=== PATIENT | female | born 2000 | race Two or more races ===

== ENCOUNTER 2025-02-09 10:41 | Emergency (ER) | payer MEDICAID, SELFPAY ==
[2025-02-09 10:49] VITALS: BP 125/62; PULSE 102; RESP 16; TEMP 37; O2SAT 97; BMI 30.9
--- NOTE | 2025-02-09 10:54 | EDNOTE_ITS ---
<Statement entered by Sarahi Goncalves MD - 02/12/25 14:42> As co-signing physician, I was present and available for consult prn. I concur with the plan and care as documented by the midlevel provider. ED Allergic Reaction RME/HPI General Chief complaint: Allergic Reaction Stated complaint: BLISTERS ON LIPS & HIVES ; POSSIBLE ALLERGIC RXN Time Seen by Provider: 02/09/25 10:51 Arrival date/time: 02/09/25 10:41 25-year-old female presents to the emergency department day for concerns for allergic reaction patient reports blisters on lips and hives patient also states that she has got vaginal discharge requesting STD panel Limitations: no limitations Related Data Home Medications ?Medication ?Instructions ?Recorded ?Confirmed vits no.130-ferrous fum tab 10/09/23 27 mg iron-folic acid 800 mcg tablet ( Vitamin) Previous Rx's ?Medication ?Instructions ?Recorded diphenhydramine HCl 25 mg capsule 25 mg PO Q8H PRN all ergic symptoms 02/09/25 (Benadryl) #30 caps doxycycline hyclate 100 mg capsule 100 mg PO BID 7 day s #14 caps 02/09/25 Allergies Allergy/AdvReac Type Severity Reaction Status Date / Time No Known Allergies Allergy Verified 02/09/25 10:46 Review of Systems Review of Systems Systems Reviewed: All systems reviewed, normal except as documented Constitutional Constitutional: Reports system reviewed and no additional complaints, except as documented, Denies fever(s) and Denies headache(s) Eyes Eyes: Reports system reviewed and no additional complaints, except as documented and Denies blurry vision ENT Ears, Nose, Mouth, and Throat: Reports system reviewed and no additional complaints, except as documented, Denies headache(s), Denies nasal congestion and Denies nasal discharge Cardiovascular Cardiovascular: Reports system reviewed and no additional complaints, except as documented, Denies chest pain and Denies dyspnea Respiratory Respiratory: Reports system reviewed and no additional complaints, except as documented, Denies chest congestion, Denies cough and Denies dyspnea Gastrointestinal Gastrointestinal: Reports system reviewed and no additional complaints, except as documented and Denies abdominal pain Genitourinary Genitourinary: Reports system reviewed and no additional complaints, except as documented, Denies abnormal vaginal bleeding, Denies dysuria, Denies flank pain and Reports vaginal discharge Integumentary/Breasts Skin/Breast: Reports system reviewed and no additional complaints, except as documented, Reports lesions, Reports pruritus and Reports rash Neurologic Neurologic: Reports system reviewed and no additional complaints, except as documented, Reports as per HPI and Denies headache(s) Past Medical History Past Medical History NEUROLOGIC: Negative Neurological Disorders or Seizures CARDIAC: Negative Cardiac Disorders or Congestive Heart Failure RESPIRATORY: Negative Chronic Obstructive Pulmonary Disease (COPD) GENITOURINARY: Negative Renal Disease REPRODUCTIVE: Negative Pelvic Inflammatory Disease MUSCULOSKELETAL: Negative Musculoskeletal Disorders ENDOCRINE: Negative Diabetes Mellitus Type 1 or Diabetes Mellitus Type 2 OTHER HISTORY: Negative Autoimmune Disease, Blood Transfusions, Blood Transfusion Reaction or Anesthesia Reactions Family History FAMILY HISTORY: Positive Family Cancer Surgical History SURGICAL: Negative Cardiac Surgery, Endocrine Surgery, Thyroidectomy or Ear Surgery Social History SMOKING STATUS: Current every day smoker ED Exam General Limitations: Present no limitations General appearance: Present alert and in no apparent distress Head Head exam: Present atraumatic Eye Eye exam: Present normal appearance, PERRL and EOMI ENT ENT exam: Present normal exam, normal oropharynx and mucous membranes moist Neck Neck exam: Present normal inspection, full ROM and trachea midline Chest Chest inspection: Present normal inspection and symmetric chest wall rise Respiratory Respiratory exam: Present normal lung sounds bilaterally Cardiovascular Cardiovascular exam: Present regular rate, normal rhythm and normal heart sounds Abdominal Exam Abdominal exam: Present soft and normal bowel sounds; Absent distention, tenderness, guarding, rebound or rigidity Extremities Exam Extremities exam: Present normal inspection and full ROM Back Exam Back exam: Present normal inspection and full ROM Neurological Exam Neurological exam: Present alert, oriented X3, CN II-XII intact, normal gait and reflexes normal; Absent motor sensory deficit Psychiatric Psychiatric exam: Present normal affect and normal mood Skin Skin exam: Present warm, dry and rash Course Quality Measures none Orders Category Date Time Status Chlamydia/GC/TV - PCR Stat Lab 02/09/25 11:56 Completed HCG Qualitative,Urine Stat Lab 02/09/25 11:56 Completed UA, C/S IF [Urinalysis, C/S if Indicated] Stat Lab 02/09/25 11:56 Completed Dexamethasone Inj [Decadron Inj] Med 02/09/25 10:53 Discontinued 10 mg PO X1 ONE DiphenhydrAMINE [Benadryl] Med 02/09/25 10:53 Discontinued 25 mg PO X1 ONE Lidocaine 1% 20 ml [Xylocaine 1% 20 ML] Med 02/09/25 12:31 Discontinued 2.1 ml INFL X1 ONE cefTRIAXone [Rocephin] Med 02/09/25 12:31 Discontinued 1,000 mg IM X1 ONE Vital Signs Vital signs: Vital Signs Temperature 98.6 F 02/09/25 10:49 Pulse Rate 102 H 02/09/25 10:49 Respiratory Rate 16 02/09/25 10:49 Blood Pressure 125/62 02/09/25 10:49 Pulse Oximetry (%) 97 02/09/25 10:49 Oxygen Delivery Method Room Air 02/09/25 10:49 O2 saturation 97% room air within normal limits Allergic Reaction MDM Narrative MDM Narrative:: 25-year-old female presents to the emergency department day for concerns for allergic reaction patient reports blisters on lips and hives patient also states that she has got vaginal discharge requesting STD panel On exam patient is multiple skin sores I suspect this is secondary to methamphetamine abuse Patient has no evidence of anaphylaxis patient does have some scattered hives Urinalysis GC and chlamydia obtained GC and chlamydia pending patient be treated prophylactically Patient was treated for the rash Patient discharged home in no distress to follow-up with primary care doctor in the next 24 to 48 hours and for any worsening symptoms to return to the ER immediately Patient data External records reviewed:: [facility] previous records Clinical information provided by:: patient Social determinants that could affect healthcare access:: none Patient has the following chronic illnesses:: None How is presenting disease/condition affected by chronic disease/condition?: no chronic disease Evaluation data The following diagnostics were reviewed and interpreted by me:: other (specify) (N/A) Lab and/or radiology exams considered but not ordered:: Consider not ordered Interpretation Summary: N/A Medications / Prescriptions Medications or Prescriptions considered but not ordered:: Given Medication administrations:: Medication Administration History Discontinued Medications Ceftriaxone Sodium (Ceftriaxone Sod Inj 1,000 Mg Vial) 1,000 mg IM X1 ONE Stop: 02/09/25 12:32 Last Admin: 02/09/25 12:44 Dose: 1,000 mg Documented By: DB Dexamethasone Sodium Phosphate (Dexamethasone Sod Phos Inj 10 Mg/Ml Vial) 10 mg PO X1 ONE Stop: 02/09/25 10:54 Last Admin: 02/09/25 11:05 Dose: 10 mg Documented By: DB Comments: med given IM right deltoid, per [facility] Diphenhydramine HCl (Diphenhydramine 25 Mg Capsule) 25 mg PO X1 ONE Stop: 02/09/25 10:54 Last Admin: 02/09/25 11:03 Dose: 25 mg Documented By: DB Lidocaine HCl (Lidocaine Hcl 1% 20 Ml Vial) 2.1 ml INFL X1 ONE Stop: 02/09/25 12:32 Last Admin: 02/09/25 12:45 Dose: 2.1 ml Documented By: DB Given Consultations Consultation(s) initiated? (list below): No Diagnosis Differential Diagnosis allergic reaction: anaphylaxis, allergic reaction and angioedema Most likely diagnosis given after review of the tests above:: Allergic reaction, vaginal discharge Admission Indicated Admission indicated?: not indicated Admission Request Was there a request for admission?: No Disposition Plan Disposition Plan: Discharge Discharge Attestation Discharge Attestation: The patient and all family members were given an opportunity to ask questions and understood the discharge instructions. Discharge instructions specifically effects, indications for sooner follow up or return to the emergency department, and the expected course of current diagnosis. Patient condition: Stable Discharge Plan Plan Patient Disposition: HOME (Self Care) Disposition Comment: Stable Prescriptions/Referrals Prescriptions/Med Rec: New doxycycline hyclate 100 mg capsule 100 mg PO BID 7 Days Qty: 14 0RF diphenhydramine HCl [Benadryl] 25 mg capsule 25 mg PO Q8H PRN (Reason: allergic symptoms) Qty: 30 0RF No Action Vitamin 27 mg iron- 800 mcg tablet Referrals: Waylon Macias MD [Primary Care Provider] - 02/12/25 Problem List Clinical Impression: Allergic reaction, Vaginal discharge Patient/Caregiver Discharge Instructions Education Materials: Vaginal Infection Additional Instructions: Please follow with your PCP in order to get full STD panel Your GC and chlamydia is pending will be treated prophylactically Patient discharged home in no distress to follow-up with primary care doctor in the next 24 to 48 hours and for any worsening symptoms to return to the ER immediately Print Language: Luxembourgish Stand Alone Forms: Mary Award Info., Patient Portal Info Letter PA/AIRCRAFT DESIGN ENGINEER Supervising Physician PA/AIRCRAFT DESIGN ENGINEER Supervising Physician: Dr. GONCALVES
[2025-02-09] MEDS: DiphenhydrAMINE 25 MG CAPSULE PO (11:03)
[2025-02-09] MEDS: DEXAMETHASONE SOD PHOS INJ 10 MG/ML VIAL PO (11:05)
[2025-02-09 12:15] LABS: Collection Type, Urine Clean Catch
[2025-02-09 12:26] LABS: Bilirubin,Urine Negative (Negative); Blood,Urine 3+ (Negative); Color,Urine Yellow (Lt Yel-Yel); Culture Indicated,Urine Not Indicated; Glucose, Urine Negative (Negative); Hyaline Casts,Urine 4 /hpf (0-1); Ketones,Urine Trace (Negative); Leukocyte Esterase,Urine Negative (Negative); Nitrite,Urine Negative (Negative); PH,Urine 5.5 (5.0-7.0); Protein,Urine 1+ (Neg - Trace); RBC,Urine 280 /hpf (0-3); Specific Gravity,Urine 1.035 (1.001-1.035); Squamous Epithelial Cell,Urine 2 /hpf (0-5); WBC,Urine 1 /hpf (0-5)
[2025-02-09 12:27] LABS: Clarity,Urine Hazy (Clear/Hazy)
[2025-02-09 12:28] LABS: HCG Qualitative,Urine Negative
[2025-02-09] MEDS: cefTRIAXone SOD INJ 1,000 MG VIAL 1000 MG IM (12:44)
[2025-02-09] MEDS: LIDOCAINE HCL 1% 20 ML VIAL 2.1 ML INFL (12:45)
[2025-02-09 16:30] LABS: Chlamydia trachomatis PCR Negative (Not Detect); Neisseria Gonorrhoeae DNA PCR Negative (Not Detect); Trichomonas Negative (Negative)
== END 2025-02-09 12:49 | disposition home or self-care (01) ==
PROVIDERS: Nurse Practitioner Primary Care; Emergency Provider Emergency Medicine; PCP Family Medicine
DX: L50.0 Allergic urticaria (principal); N89.8 Other specified noninflammatory disorders of vagina
CPT/HCPCS: 81001; 81025; 87491; 87591; 87661; 96372; 99283; J0696; J1100; J3490; A9270

== ENCOUNTER 2025-04-10 00:08 | Emergency (ER) | payer MEDICAID, SELFPAY ==
--- NOTE | 2025-04-10 00:18 | PD.EDHA ---
ED Headache RME/HPI General Chief Complaint: Headache Stated Complaint: MIGRAINE Time Seen by Provider: 04/10/25 00:28 Arrival date/time: 04/10/25 00:08 RME / HPI RME / HPI Narrative: This section includes all my notes and documentations, including HPI, PE, and ED course. Wayne Gonzalez MD HPI: 25yo female with history of methamphetamine abuse here with headache and other symptoms. She reports worst headache of her life. Physical Exam: General: Alert. Eyes: Conjunctivae and lids clear. ENT: No nasal congestion. Neck: Supple. Lungs: No respiratory distress. Told the patient that I would return once she is settled into bed. So I can obtain more detailed history and perform thorough physical exam. I was told the patient eloped. Wayne Gonzalez MD Related Data Home Medications ?Medication ?Instructions ?Recorded ?Confirmed vits no.130-ferrous fum tab 10/09/23 27 mg iron-folic acid 800 mcg tablet ( Vitamin) Previous Rx's ?Medication ?Instructions ?Recorded diphenhydramine HCl 25 mg capsule 25 mg PO Q8H PRN allergic symptoms 02/09/25 (Benadryl) #30 caps Allergies Allergy/AdvReac Type Severity Reaction Status Date / Time No Known Allergies Allergy Verified 04/10/25 00:10 Review of Systems Review of Systems Systems Reviewed: All systems reviewed, normal except as documented Past Medical History Past Medical History NEUROLOGIC: Negative Neurological Disorders or Seizures CARDIAC: Negative Cardiac Disorders or Congestive Heart Failure RESPIRATORY: Negative Chronic Obstructive Pulmonary Disease (COPD) GENITOURINARY: Negative Renal Disease REPRODUCTIVE: Negative Pelvic Inflammatory Disease MUSCULOSKELETAL: Negative Musculoskeletal Disorders ENDOCRINE: Negative Diabetes Mellitus Type 1 or Diabetes Mellitus Type 2 OTHER HISTORY: Negative Autoimmune Disease, Blood Transfusions, Blood Transfusion Reaction or Anesthesia Reactions Family History FAMILY HISTORY: Positive Family Cancer Surgical History SURGICAL: Negative Cardiac Surgery, Endocrine Surgery, Thyroidectomy or Ear Surgery Social History SMOKING STATUS: Never smoker ED Exam Narrative Physical exam: As noted in HPI. Course Quality Measures none Orders Category Date Time Status Bedside COVID-19 Antigen Test NOW Care 04/10/25 00:22 Active Bedside Influenza A&B Antigen Test NOW Care 04/10/25 00:22 Active EKG (ED ONLY) *Do not use* NOW Care 04/10/25 00:23 Active Saline [Insert IV] NOW Care 04/10/25 00:22 Active Straight [In and Out Catheter] X1 Care 04/10/25 00:[address] head/brain wo con Stat Exams 04/10/25 00:23 Ordered EKG (ED Only) Stat Exams 04/10/25 00:23 Ordered Acetaminophen Stat Lab 04/10/25 00:24 Ordered Alcohol, Blood Medical Stat Lab 04/10/25 00:24 Ordered Amylase Stat Lab 04/10/25 00:24 Ordered BNP [B-Type Natriuretic Peptide] Stat Lab 04/10/25 00:25 Ordered Bilirubin,Direct Stat Lab 04/10/25 00:24 Ordered CBC Stat Lab 04/10/25 00:25 Ordered CK [Creatine Kinase] Stat Lab 04/10/25 00:24 Ordered CMP [Comprehensive Metabolic Panel] Stat Lab 04/10/25 00:24 Ordered D-Dimer Stat Lab 04/10/25 00:25 Ordered Drug Screen,Urine Stat Lab 04/10/25 00:24 Ordered Free T4 (Free Thyroxine) Stat Lab 04/10/25 00:24 Ordered Lipase Stat Lab 04/10/25 00:24 Ordered Magnesium Stat Lab 04/10/25 00:24 Ordered Salicylate Stat Lab 04/10/25 00:24 Ordered TSH [Thyroid Stimulating Hormone] Stat Lab 04/10/25 00:24 Ordered Troponin I Stat Lab 04/10/25 00:24 Ordered UA, C/S IF [Urinalysis, C/S if Indicated] Stat Lab 04/10/25 00:25 Ordered VBG [Venous Blood Gas] Stat Lab 04/10/25 00:25 Ordered LORazepam [Ativan Inj] Med 04/10/25 00:22 Discontinued 2 mg IVP X1 ONE Ondansetron Inj [Zofran Inj] Med 04/10/25 00:22 Discontinued 4 mg IVP X1 ONE Sodium Chloride 0.9% 1000 ml [Ns] 1,000 ml Med 04/10/25 00:22 Active IV 999 mls/hr Vital Signs Vital signs: Vital Signs Temperature 98.2 F 04/10/25 00:28 Pulse Rate 155 H 04/10/25 00:28 Respiratory Rate 20 04/10/25 00:28 Blood Pressure 156/99 H 04/10/25 00:28 Pulse Oximetry (%) 96 04/10/25 00:28 Oxygen Delivery Method Room Air 04/10/25 00:28 Headache MDM Narrative MDM Narrative:: 25yo female with history of methamphetamine abuse here with headache and other symptoms. She reports worst headache of her life. Patient data External records reviewed:: [facility] previous records (Per chart review, patient was seen here on 02/09/25 for an allergic reaction.) Clinical information provided by:: patient Social determinants that could affect healthcare access:: substance use (history of methamphetamine abuse) Patient has the following chronic illnesses:: none How is presenting disease/condition affected by chronic disease/condition?: no chronic disease Evaluation data The following diagnostics were reviewed and interpreted by me:: other (specify) (none) Lab and/or radiology exams considered but not ordered:: none Interpretation Summary: none Medications / Prescriptions Medications or Prescriptions considered but not ordered:: none Medication administrations:: Medication Administration History Sodium Chloride (Ns) 1,000 mls @ 999 mls/hr IV .Q1H1M ONE Stop: 04/10/25 01:22 Last Admin: 04/10/25 00:40 Dose: Not Given Documented By: DT Non-Admin Reason: patient refused Discontinued Medications Lorazepam (Lorazepam 2 Mg/Ml Vial) 2 mg IVP X1 ONE Stop: 04/10/25 00:23 Last Admin: 04/10/25 00:38 Dose: Not Given Documented By: DT Non-Admin Reason: patient refused Ondansetron HCl (Ondansetron Inj 2 Mg/Ml Inj 2 Ml) 4 mg IVP X1 ONE; Protocol Stop: 04/10/25 00:23 Last Admin: 04/10/25 00:39 Dose: Not Given Documented By: DT Non-Admin Reason: patient refused none Consultations Consultation(s) initiated? (list below): No Diagnosis Differential diagnosis headache: migraine, tension headache, subarachnoid hemorrhage, headache and postconcussion syndrome Most likely diagnosis given after review of the tests above:: Patient eloped. Admission Indicated Admission indicated?: not indicated Explain why admission is indicated or not indicated:: Patient eloped. Admission Request Was there a request for admission?: No Disposition Plan Disposition Plan: other (specify) (Patient eloped.) Discharge Plan Plan Patient Disposition: Elopement Prescriptions/Referrals Prescriptions/Med Rec: No Action Vitamin 27 mg iron- 800 mcg tablet diphenhydramine HCl [Benadryl] 25 mg capsule 25 mg PO Q8H PRN (Reason: allergic symptoms) Qty: 30 0RF Problem List Clinical Impression: Headache Patient/Caregiver Discharge Instructions Print Language: Solomon Islander
[2025-04-10 00:28] VITALS: BP 156/99; PULSE 155; RESP 20; TEMP 36.8; O2SAT 96
--- NOTE | 2025-04-10 00:32 | PC.NURSE ---
@0030: Patient arrived to bed 5. Per patient i have really bad migraines. i have bad allergies. i just want liquid medication. Dr. Gonzalez at bedside describing plan of care. Per patient i dont want an IV i dont think thats necessary. Please take all of these things off of me i have to go to the bathroom. Escorted patient to the bathroom. Per patient i decided this isnt a good time for me to be here right now ill come back later. . This RN informed the patient to speak with provider prior to making decision and educated on the AMA form. Patient refused to sign AMA form and walked out to the lobby.
== END 2025-04-10 00:41 | disposition left against medical advice (07) ==
LOC: SERX 01:06
PROVIDERS: Emergency Provider Emergency Medicine
DX: R51.9 Headache, unspecified (principal); Z53.29 Procedure and treatment not carried out because of patient's decision for other reasons
CPT/HCPCS: 80053; 80307; 80320; 80329; 81001; 82150; 82248; 82550; 82803; 83690; 83735; 83880; 84439; 84443; 84484; 85025; 85379; 99281; G0480

== ENCOUNTER 2025-05-17 02:34 | Emergency (ER) | payer MEDICAID, SELFPAY ==
[2025-05-17 02:49] VITALS: BMI 29.9
--- NOTE | 2025-05-17 02:49 | EDNOTE_ITS ---
ED Medical Clearance RME/HPI General Chief complaint: Medical Clearance Stated complaint: CARE HOME CLEARANCE Time Seen by Provider: 05/17/25 03:34 Arrival date/time: 05/17/25 02:34 Limitations: no limitations RME / HPI RME / HPI Narrative: Dr. Casper's Main ED Evaluation: 25yo female BIB PPD presents to for a medical clearance. PPD brought the patient in due to detention staff being unable to obtain the patient's vitals. PPD endorses the patient used amphetamines. No other complaints reported. Related Information Home Medications ?Medication ?Instructions ?Recorded ?Confirmed vits no.130-ferrous fum tab 10/09/23 27 mg iron-folic acid 800 mcg tablet ( Vitamin) Previous Rx's ?Medication ?Instructions ?Recorded diphenhydramine HCl 25 mg capsule 25 mg PO Q8H PRN all ergic symptoms 02/09/25 (Benadryl) #30 caps Allergies Allergy/AdvReac Type Severity Reaction Status Date / Time No Known Allergies Allergy Verified 04/10/25 00:10 Review of Systems Review of Systems Systems Reviewed: All systems reviewed, normal except as documented Past Medical History Past Medical History NEUROLOGIC: Negative Neurological Disorders or Seizures CARDIAC: Negative Cardiac Disorders or Congestive Heart Failure RESPIRATORY: Negative Chronic Obstructive Pulmonary Disease (COPD) GENITOURINARY: Negative Renal Disease REPRODUCTIVE: Negative Pelvic Inflammatory Disease MUSCULOSKELETAL: Negative Musculoskeletal Disorders ENDOCRINE: Negative Diabetes Mellitus Type 1 or Diabetes Mellitus Type 2 OTHER HISTORY: Negative Autoimmune Disease, Blood Transfusions, Blood Transfusion Reaction or Anesthesia Reactions Family History FAMILY HISTORY: Positive Family Cancer Surgical History SURGICAL: Negative Cardiac Surgery, Endocrine Surgery, Thyroidectomy or Ear Surgery Social History SMOKING STATUS: Never smoker ED Exam General Limitations: Present no limitations General appearance: Present alert and in no apparent distress Head Head exam: Present atraumatic Eye Eye exam: Present normal appearance, PERRL and EOMI ENT ENT exam: Present normal exam, normal oropharynx and mucous membranes moist Neck Neck exam: Present normal inspection, full ROM and trachea midline Chest Chest inspection: Present normal inspection and symmetric chest wall rise Respiratory Respiratory exam: Present normal lung sounds bilaterally; Absent accessory muscle use Cardiovascular Cardiovascular exam: Present regular rate, normal rhythm and normal heart sounds Abdominal Exam Abdominal exam: Present soft and normal bowel sounds Extremities Exam Extremities exam: Present normal inspection and full ROM Back Exam Back exam: Present normal inspection and full ROM Neurological Exam Neurological exam: Present alert, oriented X3 and CN II-XII intact Psychiatric Psychiatric exam: Present normal affect and agitated Skin Skin exam: Present warm, intact, normal color and diaphoresis Course Quality Measures none Orders Category Date Time Status Diazepam Inj [Valium Inj] Med 05/17/25 02:44 Discontinued 5 mg IM X1 ONE DiphenhydrAMINE INJ [Benadryl Inj] Med 05/17/25 02:48 Discontinued 50 mg IM X1 ONE Haloperidol Lactate [Haldol Inj] Med 05/17/25 02:48 Discontinued 5 mg IM X1 ONE Vital Signs Vital signs: Vital Signs Temperature 100.7 F H 05/17/25 02:50 Pulse Rate 156 H 05/17/25 02:50 Respiratory Rate 18 05/17/25 02:50 Medical Clearance MDM Narrative MDM Narrative:: Scribe Attestation: 05/17/25 - Liliana Baron am scribing for and in the presence of Dr. Casper. 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.) Clinical information provided by:: patient and law enforcement Social determinants that could affect healthcare access:: substance use Patient has the following chronic illnesses:: none How is presenting disease/condition affected by chronic disease/condition?: no chronic disease Evaluation data The following diagnostics were reviewed and interpreted by me:: other (specify) (none) Lab and/or radiology exams considered but not ordered:: none Interpretation Summary: none Medications / Prescriptions Medications or Prescriptions considered but not ordered:: none Medication administrations:: Medication Administration History Discontinued Medications Diazepam (Diazepam Inj 5 Mg/Ml Vial 2 Ml) 5 mg IM X1 ONE Stop: 05/17/25 02:45 Last Admin: 05/17/25 02:56 Dose: 5 mg Documented By: EE Diphenhydramine HCl (Diphenhydramine Inj 50 Mg/Ml Vial) 50 mg IM X1 ONE Stop: 05/17/25 02:49 Last Admin: 05/17/25 02:54 Dose: 50 mg Documented By: EE Haloperidol Lactate (Haloperidol Lact Inj 5 Mg/Ml Vial) 5 mg IM X1 ONE Stop: 05/17/25 02:49 Last Admin: 05/17/25 02:56 Dose: 5 mg Documented By: EE see above Consultations Consultation(s) initiated? (list below): No Diagnosis Medical Clearance Differential Diagnosis: other (drug use, polysubstance use, medical clearance for incarceration) Most likely diagnosis given after review of the tests above:: see clinical impression below Admission Indicated Admission indicated?: not indicated Admission Request Was there a request for admission?: No Disposition Plan Disposition Plan: Discharge Discharge Attestation Discharge Attestation: The patient and all family members were given an opportunity to ask questions and understood the discharge instructions. Discharge instructions specifically effects, indications for sooner follow up or return to the emergency department, and the expected course of current diagnosis. Patient condition: Stable Discharge Plan Plan Patient Disposition: Intermediate/Court/Law Discharge Disposition comment: Okay to book Prescriptions/Referrals Prescriptions/Med Rec: No Action Vitamin 27 mg iron- 800 mcg tablet diphenhydramine HCl [Benadryl] 25 mg capsule 25 mg PO Q8H PRN (Reason: allergic symptoms) Qty: 30 0RF Problem List Clinical Impression: Medical clearance for incarceration Patient/Caregiver Discharge Instructions Print Language: Kinyarwanda
[2025-05-17 02:50] VITALS: PULSE 156; RESP 18; TEMP 38.2
[2025-05-17] MEDS: DIAZEPAM INJ 5 MG/ML VIAL 2 ML IM (02:56)
[2025-05-17] MEDS: HALOPERIDOL LACT INJ 5 MG/ML VIAL IM (02:56)
[2025-05-17 03:44] VITALS: BP 97/65; PULSE 126; RESP 18; TEMP 37.2; O2SAT 96
[2025-05-17 04:16] VITALS: BP 94/58; PULSE 107; RESP 18; O2SAT 99
== END 2025-05-17 04:16 ==
LOC: SERX 04:29
PROVIDERS: Emergency Provider Emergency Medicine
DX: Z02.89 Encounter for other administrative examinations (principal)
CPT/HCPCS: 96372; 99283; J1200; J1630; J3360

== ENCOUNTER 2025-10-09 11:29 | Emergency (ER) | payer MEDICAID, SELFPAY ==
[2025-10-09 12:05] VITALS: BP 113/74; PULSE 69; RESP 18; TEMP 37.1; O2SAT 97; BMI 29.9
--- NOTE | 2025-10-09 12:09 | XR_ITS ---
Upright PA and lateral chest film 10/09/2025 at 1:02 p.m. Comparison study 05/26/2023 No history given Findings the heart mediastinum lungs and pleural space overall clear, with the exception of a very tiny probable oval nodular density overlying the left lower lung. This is visible on the lateral film, it lies in the lingula just anterior to the major fissure and it measures a maximum of 1 cm in diameter. Retrospectively, this is visible with certainty on the previous lateral chest film of 05/26/2023, hence this is benign. The dorsal spine shows evidence of very mild levoscoliosis in the mid dorsal region IMPRESSION: 1. There is an oval 1 cm very faint noncalcified nodule seen in the lingula in the left upper lobe, lying just ventral to the major fissure on the lateral film. This was very nicely seen on the lateral chest film of 05/26/2023, hence it is benign, probably a benign noncalcified granuloma #2. Exceptionally mild levoscoliosis of the mid dorsal spine 3 otherwise entirely normal chest
[2025-10-09 12:41] LABS: Basophils # (Auto) 0.0 Thou/mm3 (0.0-0.2); Basophils % (Auto) 1 % (0-2.5); Eosinophils # (Auto) 0.1 Thou/mm3 (0.0-0.5); Eosinophils % (Auto) 2 % (0-10); Hematocrit 38.8 % (36.0-46.0); Hemoglobin 13.3 g/dL (12.0-16.0); Immature Granulocytes Auto 0.03 Thou/mm3 (0.00-0.00); Lymphocytes # (Auto) 1.7 Thou/mm3 (1.0-4.8); Lymphocytes % (Auto) 22 % (10-50); Mean Corpuscular HGB Conc 34.3 g/dl (31.0-37.0); Mean Corpuscular Hemoglobin 30.6 pg (25.0-35.0); Mean Corpuscular Volume 89 fL (80-100); Monocytes # (Auto) 0.3 Thou/mm3 (0.0-0.8); Monocytes % (Auto) 5 % (0-12); Neutrophils # (Auto) 5.3 Thou/mm3 (1.8-7.7); Neutrophils % (Auto) 71 % (37-80); Nucleated Red Blood Cell # 0.00 Thou/mm3 (0.00-0.00); Nucleated Red Blood Cell % 0 /100 WBC (0); Platelet Count 242 Thou/mm3 (140-440); RDW Standard Deviation 41.1 fL (36.4-46.3); Red Blood Count 4.35 Miln/mm3 (4.00-5.20); White Blood Count 7.5 Thou/mm3 (3.6-11.0)
[2025-10-09 13:13] LABS: Alanine Aminotransferase 8 U/L (10-49); Albumin, Serum 4.3 gm/dL (3.5-5.0); Albumin/Globulin Ratio 1.5 (1.2-2.2); Alkaline Phosphatase 69 U/L (46-116); Anion Gap 9 (7-16); Aspartate Amino Transferase 17 U/L (0-34); BUN/Creatinine Ratio 14 Ratio (12-20); Bilirubin,Total 0.5 mg/dL (0.3-1.2); Blood Urea Nitrogen 13 mg/dL (9-23); Calcium 9.9 mg/dL (8.3-10.6); Calcium (Corrected) 9.9 mg/dL (8.5-10.1); Carbon Dioxide 23.7 mMol/L (20.0-31.0); Chloride 109 mMol/L (98-107); Creatinine (Component) 0.9 mg/dL (0.6-1.3); Estimated Creatinine Clearance 95.5 mL/min (>60); Globulin 2.9 gm/dL (2.3-3.5); Glucose 92 mg/dL (74-106); Lipase 44 U/L (12-53); Osmolality,Calculated 283 (275-295); Potassium 4.1 mMol/L (3.4-5.1); Sodium 142 mMol/L (136-145); Total Protein 7.2 gm/dL (5.7-8.2); Troponin I < 0.020 ng/mL (0.0-0.045); eGFR > 60 See Note
[2025-10-09 13:55] LABS: Collection Type, Urine Clean Catch
[2025-10-09 14:06] LABS: Bilirubin,Urine Negative (Negative); Blood,Urine Negative (Negative); Clarity,Urine Clear (Clear/Hazy); Color,Urine Lt-Yellow (Lt Yel-Yel); Culture Indicated,Urine Not Indicated; Glucose, Urine Negative (Negative); Ketones,Urine Negative (Negative); Leukocyte Esterase,Urine Negative (Negative); Nitrite,Urine Negative (Negative); PH,Urine 6.0 (5.0-7.0); Protein,Urine Negative (Neg - Trace); RBC,Urine 1 /hpf (0-3); Specific Gravity,Urine 1.017 (1.001-1.035); Squamous Epithelial Cell,Urine 1 /hpf (0-5); Urobilinogen,Urine Negative mg/dL (0.0-1.0); WBC,Urine 1 /hpf (0-5)
[2025-10-09 14:14] LABS: Amphetamine/Methamp Scrn,U Negative (Negative); Barbiturate Screen,Urine Negative (Negative); Benzodiazepines Screen,Urine Negative (Negative); Benzoylecgonine Screen, Ur Negative (Negative); Fentanyl Screen,Urine Negative (Negative); Opiate Screen,Urine Negative (Negative); THC Screen,Urine Negative (Negative)
[2025-10-09 14:16] LABS: HCG Qualitative,Urine Negative
--- NOTE | 2025-10-09 14:57 | EDNOTE_ITS ---
ED SOB =RME/HPI General Chief Complaint: Shortness of Breath/Dyspnea Stated Complaint: mid back pain,sob x 3days Time Seen by Provider: 10/09/25 11:31 Arrival date/time: 10/09/25 11:29 25-year-old male presents the Emergency Department today complaints of back pain, cough, congestion patient ports pain is worse with movement Limitations: no limitations Related Data Home Medications ?Medication ?Instructions ?Recorded ?Confirmed vits no.130-ferrous fum tab 10/09/23 27 mg iron-folic acid 800 mcg tablet ( Vitamin) Previous Rx's ?Medication ?Instructions ?Recorded diphenhydramine HCl 25 mg capsule 25 mg PO Q8H PRN all ergic symptoms 02/09/25 (Benadryl) #30 caps cyclobenzaprine 10 mg tablet 10 mg PO TID PRN muscle s pasm 10 10/09/25 days #30 tab-caps ibuprofen 800 mg tablet 800 mg PO TID PRN pain #30 t abs 10/09/25 Allergies Allergy/AdvReac Type Severity Reaction Status Date / Time No Known Allergies Allergy Verified 10/09/25 11:33 Review of Systems Review of Systems Systems Reviewed: All systems reviewed, normal except as documented Constitutional Constitutional: Reports system reviewed and no additional complaints, except as documented, Denies fever(s) and Denies headache(s) Eyes Eyes: Reports system reviewed and no additional complaints, except as documented and Denies blurry vision ENT Ears, Nose, Mouth, and Throat: Reports system reviewed and no additional complaints, except as documented, Denies headache(s), Denies nasal congestion and Denies nasal discharge Cardiovascular Cardiovascular: Reports system reviewed and no additional complaints, except as documented, Denies chest pain and Denies dyspnea Respiratory Respiratory: Reports system reviewed and no additional complaints, except as documented, Denies chest congestion, Denies cough and Denies dyspnea Gastrointestinal Gastrointestinal: Reports system reviewed and no additional complaints, except as documented and Denies abdominal pain Integumentary/Breasts Skin/Breast: Reports system reviewed and no additional complaints, except as documented and Denies rash Neurologic Neurologic: Reports system reviewed and no additional complaints, except as documented, Reports as per HPI and Denies headache(s) Past Medical History Past Medical History NEUROLOGIC: Negative Neurological Disorders or Seizures CARDIAC: Negative Cardiac Disorders or Congestive Heart Failure RESPIRATORY: Negative Chronic Obstructive Pulmonary Disease (COPD) GENITOURINARY: Negative Renal Disease REPRODUCTIVE: Negative Pelvic Inflammatory Disease MUSCULOSKELETAL: Negative Musculoskeletal Disorders ENDOCRINE: Negative Diabetes Mellitus Type 1 or Diabetes Mellitus Type 2 OTHER HISTORY: Negative Autoimmune Disease, Blood Transfusions, Blood Transfusion Reaction or Anesthesia Reactions Family History FAMILY HISTORY: Positive Family Cancer Surgical History SURGICAL: Negative Cardiac Surgery, Endocrine Surgery, Thyroidectomy or Ear Surgery Social History SMOKING STATUS: Current some day smoker ED Exam General Limitations: Present no limitations General appearance: Present alert and in no apparent distress Head Head exam: Present atraumatic Eye Eye exam: Present normal appearance, PERRL and EOMI ENT ENT exam: Present normal exam, normal oropharynx and mucous membranes moist Neck Neck exam: Present normal inspection, full ROM and trachea midline Chest Chest inspection: Present normal inspection and symmetric chest wall rise Respiratory Respiratory exam: Present normal lung sounds bilaterally Cardiovascular Cardiovascular exam: Present regular rate, normal rhythm and normal heart sounds Abdominal Exam Abdominal exam: Present soft and normal bowel sounds Extremities Exam Extremities exam: Present normal inspection and full ROM Back Exam Back exam: Present normal inspection and full ROM Neurological Exam Neurological exam: Present alert, oriented X3 and CN II-XII intact Psychiatric Psychiatric exam: Present normal affect and normal mood Skin Skin exam: Present warm, dry, intact and normal color Course Quality Measures none Orders Category Date Time Status XR chest 2V Stat Exams 10/09/25 12:09 Completed CBC Stat Lab 10/09/25 12:34 Completed Comprehensive Metabolic Panel Stat Lab 10/09/25 12:34 Completed Drug Screen,Urine Stat Lab 10/09/25 13:18 Completed HCG Qualitative,Urine Stat Lab 10/09/25 13:18 Completed Lipase Stat Lab 10/09/25 12:34 Completed Troponin I Stat Lab 10/09/25 12:34 Completed UA, C/S IF [Urinalysis, C/S if Indicated] Stat Lab 10/09/25 13:18 Completed Vital Signs Vital signs: Vital Signs Temperature 98.7 F 10/09/25 12:05 Pulse Rate 69 10/09/25 12:05 Respiratory Rate 18 10/09/25 12:05 Blood Pressure 113/74 10/09/25 12:05 Pulse Oximetry (%) 97 10/09/25 12:05 Oxygen Delivery Method Room Air 10/09/25 12:05 Shortness of Breath / Dyspnea MDM Narrative MDM Narrative:: 25-year-old male presents the Emergency Department today complaints of back pain, cough, congestion patient reports pain is worse with movement On exam patient well-appearing does not appear ill or toxic no acute distress Lab work and imaging obtained no emergent findings noted Patient discharged home in no distress to follow-up with primary care doctor in the next 24 to 48 hours and for any worsening symptoms to return to the ER imm ediately Patient data External records reviewed:: [facility] previous records Clinical information provided by:: patient Social determinants that could affect healthcare access:: none Patient has the following chronic illnesses:: None How is presenting disease/condition affected by chronic disease/condition?: no chronic disease Evaluation data The following diagnostics were reviewed and interpreted by me:: lab results and radiology exam(s) Lab and/or radiology exams considered but not ordered:: Labs radiology obtained Interpretation Summary: Reviewed by me Medications / Prescriptions Medications or Prescriptions considered but not ordered:: Given Medication administrations:: Given Consultations Consultation(s) initiated? (list below): No Diagnosis Shortness of Breath Differential Diagnosis: asthma with exacerbation and other (Muscle spasm, back pain, pneumonia) Most likely diagnosis given after review of the tests above:: Muscle spasm, back pain Admission Indicated Admission indicated?: not indicated Admission Request Was there a request for admission?: No Disposition Plan Disposition Plan: Discharge Discharge Attestation Discharge Attestation: The patient and all family members were given an opportunity to ask questions and understood the discharge instructions. Discharge instructions specifically effects, indications for sooner follow up or return to the emergency department, and the expected course of current diagnosis. Patient condition: Stable Discharge Plan Plan Patient Disposition: HOME (Self Care) Discharge Disposition comment: Stable Prescriptions/Referrals Prescriptions/Med Rec: New cyclobenzaprine 10 mg tablet 10 mg PO TID PRN (Reason: muscle spasm) 10 Days Qty: 30 0RF ibuprofen 800 mg tablet 800 mg PO TID PRN (Reason: pain) Qty: 30 0RF No Action Vitamin 27 mg iron- 800 mcg tablet diphenhydramine HCl [Benadryl] 25 mg capsule 25 mg PO Q8H PRN (Reason: allergic symptoms) Qty: 30 0RF Problem List Clinical Impression: Back pain Patient/Caregiver Discharge Instructions Education Materials: Back Safety: Bending Additional Instructions: Please follow up with your primary care doctor in the next 24-48hrs for any worsening symptoms return here immediately Print Language: Turkish Stand Alone Forms: Mary Award Info., Patient Portal Info Letter PA/STONE CRUSHER OPERATOR Supervising Physician PA/STONE CRUSHER OPERATOR Supervising Physician: Dr. [email or web address]
== END 2025-10-09 15:42 | disposition home or self-care (01) ==
LOC: SERX 14:29
PROVIDERS: Nurse Practitioner Primary Care; Emergency Provider Family Medicine; PCP Family Medicine
DX: M54.9 Dorsalgia, unspecified (principal); R06.02 Shortness of breath; R05.9 Cough, unspecified
CPT/HCPCS: 36415; 71046; 80053; 80307; 81001; 81025; 83690; 84484; 85025; 99283